=== PATIENT | male | born 1985 | race American Indian/Alaskan Native ===

== ENCOUNTER 2021-06-24 10:22 | Emergency (ER) | payer SELFPAY ==
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
== END 2021-06-24 12:13 ==
LOC: EDBD → ED 10:22
DX: I46.9 Cardiac arrest, cause unspecified (principal)
CPT/HCPCS: 92950; 99285